=== PATIENT | female | born 1985 | race Two or more races ===

== ENCOUNTER 2018-05-20 07:00 | Day surgery (SDC) | payer BC ==
[~2018-05-20] VITALS: Ht 162.6 cm; Wt 61.2 kg
== END 2018-05-20 13:00 | disposition home or self-care (01) ==
LOC: CIR.AMB 07:00 → ER 08:30 → O/R 08:30 → SEC-K 08:30 → O/R 10:54 → EDSTATUS 12:45 → CIR.AMB 13:00 → O/R 22:05
DX: K64.4 Residual hemorrhoidal skin tags (principal); K64.8 Other hemorrhoids

== ENCOUNTER 2019-11-25 09:18 | Day surgery (SDC) | payer OTHER | END 2019-11-25 21:04 | disposition home or self-care (01) | LOC: CIR.AMB 09:18 → ADM 12:30 → CIR.AMB 12:30 | PROVIDERS: ATTEND Colon & Rectal Surgery | DX: K64.5 Perianal venous thrombosis (principal); K64.8 Other hemorrhoids; K64.4 Residual hemorrhoidal skin tags ==